=== PATIENT | female | born 1970 | race Two or more races ===

== ENCOUNTER 2020-09-19 19:57 | Emergency (ER) | payer MEDICAID ==
[2020-09-19] MEDS ORDERED: Ondansetron 4 MG/2 ML SDV IVPUSH ONE (20:27)
[2020-09-19] MEDS ORDERED: HYDROmorphone 1 MG/ML Syringe IVPUSH STA (20:27)
[2020-09-19] MEDS ORDERED: Sodium Chloride 0.9% 1,000 ML IV SCH (20:30)
--- NOTE | 2020-09-19 20:34 | EDM.PDOC ---
ED HPI GENERAL MEDICAL PROBLEM - General Chief Complaint: Chest Pain Stated Complaint: CHEST PAIN Time Seen by Provider: 09/19/20 20:11 Source of Information: Reports: Patient, Family () History Limitations: Reports: No Limitations - History of Present Illness INITIAL COMMENTS - FREE TEXT/NARRATIVE: Mrs. Miranda is a very pleasant 50-year-old woman who now presents the ED stating that she developed upper abdominal/epigastric pain, a tightness sensation, last night, while lying in bed watching television. She states that initially it was just a discomfort, but that it has progressively gotten worse, and is now a genuine pain. Around 15:00 this afternoon, the pain started radiating up into her lower retrosternal area, and around the left side of her upper abdomen to her mid-back. She states that she feels better if her knees are drawn up, worse if she is stretched out. She reports that she has had some nausea, but no vomiting. She feels a bit diaphoretic. No recent dyspnea. The patient states that she took some [place] and TUMS, without improvement in her symptoms. She last ate a small amount of soup around 15:00 this afternoon. The patient states that she had similar abdominal pain, without the chest component, about 1 year ago, however, it resolved after about 3 hours, and she did not seek medical attention at that time. Here in the ED, the patient's initial BP is found to be elevated at 188/80, with slight bradycardia 58 bpm. She is afebrile, saturating 99% on room air. She appears to be somewhat uncomfortable, but in no acute distress. Prior to last night, the patient denies having a recent fever, chills, sore throat, ear pain, nasal or sinus congestion, cough, dyspnea, chest pain, palpitations, nausea, vomiting, constipation, diarrhea, abdominal pain, urinary symptoms, recent weight gain or weight loss, recent bloody bowel movements or black bowel movements, recent joint aches, headaches, or rashes. The patient and her are visiting this area from [place]. 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) - Infectious Disease History Infectious Disease History: Reports: Chicken Pox, Novel Coronavirus - Past Surgical History HEENT Surgical History: Reports: Oral Surgery (dental extractions) Female Surgical History: Reports: Other (See Below) (Salpingectomy for ect opic ) Social & Family History - Tobacco Use Tobacco Use Status *Q: Current Every Day Tobacco User Years of Tobacco use: 34 Packs/Tins Daily: 1 Tobacco Use Comment: Started smoking at 16 yrs old - Caffeine Use Caffeine Use: Reports: Soda - Alcohol Use Alcohol Use History: Yes Alcohol Use Frequency: Socially (to excess once a week) - Recreational Drug Use Recreational Drug Use: No - Living Situation & Occupation Living situation: Reports: , with Spouse 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 ED EXAM, GI/ABD - Physical Exam Exam: See Below Exam Limited By: No Limitations General Appearance: Alert, WD/WN, Mild Distress (appears uncomfortable) Eyes: Bilateral: Normal Appearance, EOMI Ears: Normal External Exam, Hearing Grossly Normal Nose: Normal Inspection Throat/Mouth: Normal Inspection, Normal Lips, Normal Voice, No Airway Compromise Head: Atraumatic, Normocephalic Neck: Normal Inspection, Full Range of Motion Respiratory/Chest: No Respiratory Distress, Lungs Clear, Normal Breath Sounds, No Accessory Muscle Use, Chest Non-Tender (including the sternum) Cardiovascular: Normal Peripheral Pulses, Regular Rate, Rhythm, No Edema, No Gallop, No JVD, No Murmur, No Rub GI/Abdominal Exam: Normal Bowel Sounds, Soft, No Organomegaly, No Distention, No Abnormal Bruit, No Mass, Tender (Reproducible, to palpation of the epigastric area. Nontender elsewhere.) Back Exam: Normal Inspection, Full Range of Motion, NT Extremities: Normal Inspection, Normal Range of Motion, No Pedal Edema, Normal Capillary Refill Neurological: Alert, Oriented, Normal Cognition, No Motor/Sensory Deficits Psychiatric: Normal Affect Skin Exam: Warm, Dry, Intact, Normal Color, No Rash #1 Interpretation EKG Date: 09/19/20 Time: 20:05 Rhythm: NSR Rate (Beats/Min): 60 [place]: Normal P-Wave: Present QRS: Other (Late transition) ST-T: Normal QT: Normal Comparison: NA - No Prior EKG Course - Vital Signs Last Recorded V/S: Last Vital Signs Temp 36.3 C 09/19/20 20:05 Pulse 59 L 09/19/20 20:05 Resp 20 09/19/20 20:05 BP 188/80 H 09/19/20 20:05 Pulse Ox 99 09/19/20 20:05 - Orders/Labs/Meds Orders: Active Orders 24 hr Category Date Time Status EKG Documentation Completion [RC] STAT Care 09/19/20 20:33 Active Abdomen Pelvis w Cont [CT] Stat Exams 09/19/20 20:27 Taken Chest 2V [CR] Stat Exams 09/19/20 20:32 Taken Famotidine [Pepcid] Med 09/19/20 22:55 Stat 40 mg PO ONETIME STA Sodium Chloride 0.9% [Normal Saline] 1,000 ml Med 09/19/20 20:30 Active IV ASDIRECTED Medication Orders Famotidine (Famotidine 20 Mg Tab) 40 mg PO ONETIME STA Stop: 09/19/20 22:56 Sodium Chloride (Normal Saline) 1,000 mls @ 150 mls/hr IV ASDIRECTED KRISHNA Last Admin: 09/19/20 20:36 Dose: 150 mls/hr Documented by: HO Labs: Laboratory Tests 09/19/20 09/19/20 09/19/20 Range/Units 20:10 20:10 21:07 WBC 7.96 (3.98-10.04) K/mm3 RBC 4.57 (3.98-5.22) M/mm3 Hgb 14.5 (11.2-15.7) gm/dl Hct 43.8 (34.1-44.9) % MCV 95.8 H (79.4-94.8) fl MCH 31.7 (25.6-32.2) pg MCHC 33.1 (32.2-35.5) g/dl RDW Std Deviation 45.8 (36.4-46.3) fL Plt Count 308 (182-369) K/mm3 MPV 10.4 (9.4-12.3) fl Neutrophils % (Manual) 73 H (40-60) % Band Neutrophils % 0 (0-10) % Lymphocytes % (Manual) 23 (20-40) % Atypical Lymphs % 0 % Monocytes % (Manual) 3 (2-10) % Eosinophils % (Manual) 0 L (0.7-5.8) % Basophils % (Manual) 1 (0.1-1.2) Platelet Estimate Adequate RBC Morph Comment Normal Sodium 139 (136-145) mEq/L Potassium 3.6 (3.5-5.1) mEq/L Chloride 102 (98-107) mEq/L Carbon Dioxide 26 (21-32) mEq/L Anion Gap 14.6 (5-15) BUN 9 (7-18) mg/dL Creatinine 0.7 (0.55-1.02) mg/dL Est Cr Clr Drug Dosing 70.94 mL/min Estimated GFR (MDRD) > 60 (>60) mL/min BUN/Creatinine Ratio 12.9 L (14-18) Glucose 113 H (70-99) mg/dL Calcium 9.2 (8.5-10.1) mg/dL Magnesium 2.1 (1.8-2.4) mg/dL Total Bilirubin 0.5 (0.2-1.0) mg/dL AST 60 H (15-37) U/L ALT 106 H (14-59) U/L Alkaline Phosphatase 118 H (46-116) U/L Total Protein 8.5 H (6.4-8.2) g/dl Albumin 3.8 (3.4-5.0) g/dl Globulin 4.7 gm/dL Albumin/Globulin Ratio 0.8 L (1-2) Lipase 105 (73-393) U/L SARS-CoV-2 RNA (EDUAR) Negative (NEGATIVE) Meds: Medications Generic Name Dose Route Start Last Admin Trade Name Freq PRN Reason Stop Dose Admin Famotidine 40 mg 09/19/20 22:55 Famotidine 20 Mg Tab PO 09/19/20 22:56 ONETIME STA Sodium Chloride 1,000 mls @ 150 mls/hr 09/19/20 20:30 09/19/20 20:36 Normal Saline IV 150 mls/hr ASDIRECTED KRISHNA Administration Discontinued Medications Generic Name Dose Route Start Last Admin Trade Name Freq PRN Reason Stop Dose Admin Hydromorphone HCl 0.5 mg 09/19/20 20:27 09/19/20 20:37 Hydromorphone 1 Mg/Ml Syringe IVPUSH 09/19/20 20:28 0.5 mg ONETIME STA Administration Hydromorphone HCl 0.5 mg 09/19/20 22:13 09/19/20 22:18 Hydromorphone 0.5 Mg/0.5 Ml Syringe IVPUSH 09/19/20 22:14 0.5 mg ONETIME ONE Administration Ondansetron HCl 4 mg 09/19/20 20:27 09/19/20 20:37 Ondansetron 4 Mg/2 Ml Sdv IVPUSH 09/19/20 20:28 4 mg ONETIME ONE Administration - Re-Assessments/Exams Free Text/Narrative Re-Assessment/Exam: 09/19/20 20:29 As above, the patient developed upper abdominal pain last night, while lying down. The pain progressively got worse today, then radiated up into her lower chest around 15:00 this afternoon. She states that the pain radiates around the left side to the middle of her back. She has had nausea, but no vomiting. She also reports some diaphoresis. No dyspnea. An ECG, obtained at triage, appears to be normal. On examination, she has reproducible tenderness to her upper abdomen, with no tenderness elsewhere. No back tenderness or CVA tenderness. Her presentation is concerning for pancreatitis. I have ordered a work-up that includes several blood tests, a swab for the SARS-CoV-2 virus (in case she needs to be admitted), a chest x-ray, and a CT of the abdomen and pelvis with oral and IV contrast. In the meantime, the patient will be given some IV Dilaudid, IV Zofran, and IV fluid. 09/19/20 21:12 Two-view chest radiograph appears to be grossly normal. The cardiac silhouette is within normal limits. No pulmonary vascular congestion. No pleural effusions. No focal infiltrate. No pneumothorax. Formal read per the Radiologist pending. The patient's CBC is unremarkable. Her CMP is remarkable for slight hyperglycemia of 113, an AST/ALT elevated at 160/106, and an alkaline phosphatase mildly elevated at 118, with the remainder of her CMP being unremarkable. Her magnesium level is within normal limits at 2.1. Her lipase level is within normal limits at 105. 09/19/20 22:28 The patient's swab for the SARS-CoV-2 virus has returned negative. 09/19/20 22:49 CT of the abdomen and pelvis with oral and IV contrast is read by Rajiv as: 1. Cholelithiasis without cholecystitis. 2. Diverticulosis without diverticulitis. 09/19/20 22:56 Test results discussed with the patient and her . As above, today's work-up is grossly unremarkable, and does not explain the cause of her symptoms. Overall, I suspect that she is suffering from GERD, and for that reason, I will start her on famotidine, which she can continue as an outpatient. I will prescribe her a small quantity of tramadol that she can take if her pain continues, as well as refer her to the clinic for follow-up. Departure - Departure Time of Disposition: 22:57 Disposition: Home, Self-Care 01 Condition: Good Clinical Impression: GERD (gastroesophageal reflux disease) - Discharge Information *PRESCRIPTION DRUG MONITORING PROGRAM REVIEWED*: Not Applicable *COPY OF PRESCRIPTION DRUG MONITORING REPORT IN PATIENT ÁNGEL: Not Applicable Prescriptions: traMADol [Ultram] 1 tab PO Q6H PRN #6 tablet PRN Reason: Pain (Severe 7-10) Referrals: PCP,Not In Area [Primary Care Provider] - Marianela Carrera, GROC[employer]ER [Nurse Practitioner] - Forms: ED Department Discharge Additional Instructions: You were seen in the emergency room after developing upper abdominal pain last night, which radiated up into your chest and around the left side of your body to your back this afternoon. Work-up in the ER included several blood tests, a swab for the SARS-CoV-2 virus, a chest x-ray, a CT of your abdomen and pelvis with oral and IV contrast, and an ECG. Your entire work-up was unremarkable, and does not explain the cause of your p ain. Based on your history, physical exam, and ER tests, the cause of your pain is felt most likely to be due to GERD = acid reflux. You have been started on the antacid famotidine (Pepcid). Famotidine is available [id number], and generic famotidine is just as good as brand-name Pepcid. We recommend that you take 1 tablet of famotidine twice a day. You have also been prescribed the opioid pain reliever tramadol. You may take 1 tablet of tramadol up to every 6 hours, as needed for pain. Do not drive or operate heavy machinery for 12 hours after taking tramadol. Tramadol may cause constipation, so consider taking a stool softener. If your pain persists despite taking famotidine, we recommend that you follow-up with Marianela Carrera NP, or one of the other providers in the clinic, for further evaluation. If any other problems, please do not hesitate to return to the ER. Sepsis Event Note (ED) - Evaluation Sepsis Screening Result: No Definite Risk - Focused Exam Vital Signs: Vital Signs Temp Pulse Resp BP Pulse Ox 09/19/20 20:05 36.3 C 59 L 20 188/80 H 99 - My Orders Last 24 Hours: My Active Orders 09/19/20 20:27 Abdomen Pelvis w Cont [CT] Stat 09/19/20 20:30 Sodium Chloride 0.9% [Normal Saline] 1,000 ml IV ASDIRECTED 09/19/20 20:32 Chest 2V [CR] Stat 09/19/20 20:33 EKG Documentation Completion [RC] STAT 09/19/20 22:55 Famotidine [Pepcid] 40 mg PO ONETIME STA - Assessment/Plan Last 24 Hours: My Active Orders 09/19/20 20:27 Abdomen Pelvis w Cont [CT] Stat 09/19/20 20:30 Sodium Chloride 0.9% [Normal Saline] 1,000 ml IV ASDIRECTED 09/19/20 20:32 Chest 2V [CR] Stat 09/19/20 20:33 EKG Documentation Completion [RC] STAT 09/19/20 22:55 Famotidine [Pepcid] 40 mg PO ONETIME STA
[2020-09-19] MEDS ORDERED: HYDROmorphone 0.5 MG/0.5 ML Syringe IVPUSH ONE (22:13)
[2020-09-19] MEDS ORDERED: Famotidine 20 MG Tab PO STA (22:55)
--- NOTE | 2020-09-20 07:31 | CT ---
CT abdomen and pelvis Technique: Multiple axial sections were obtained from above the dome of the diaphragm inferiorly to the pubic symphysis. Intravenous contrast and oral contrast was given. Delayed images were also obtained to the abdomen and pelvis. Reconstructed coronal and sagittal images were obtained. Comparison: No prior abdominal imaging is available. Findings: Visualized lung bases show mild atelectasis. Liver contains no focal abnormality. Single large gallstone is noted within the gallbladder measuring about 2.8 cm. Spleen size is normal. Small hiatal hernia is noted with gastroesophageal reflux of contrast. Adrenal glands show no nodule. Pancreas shows no discrete abnormality. Kidneys show symmetric contrast enhancement without hydronephrosis or mass. Abdominal aorta shows atherosclerotic change without aneurysm. No retroperitoneal adenopathy or mesenteric abnormalities are seen. No pelvic mass or adenopathy is noted. Minimal diverticulosis is seen within the sigmoid colon. No findings of diverticulitis are seen. Appendix is believed to be present and appears normal in size. No bowel abnormality is appreciated on this exam. Delayed images show contrast excretion from both kidneys into nondilated ureters as well as within the bladder. Bone window settings were reviewed which show no acute osseous abnormality. Minimal degenerative changes are seen within the spine. Impression: 1. Large gallstone. 2. Minimal diverticulosis without diverticulitis. 3. Nothing acute is appreciated on CT study of the abdomen and pelvis. Diagnostic code #2 I agree with preliminary report from [facility], finalized on 09/19/20, 11:40 PM CDT, code 1
--- NOTE | 2020-09-20 07:33 | CR ---
Chest: 2 views of the chest were obtained. Comparison: No prior chest imaging is available. Heart size and mediastinum are within normal limits. Lungs show no acute parenchymal change. Bony structures show nothing acute. Impression: 1. Nothing acute is seen on 2 view chest x-ray. Diagnostic code #1
== END 2020-09-19 23:20 | disposition home or self-care (01) ==
LOC: JD.ED 19:57
DX: K21.9 Gastro-esophageal reflux disease without esophagitis (principal); Z88.0 Allergy status to penicillin; Z86.16 Personal history of COVID-19; Z72.0 Tobacco use; Z20.822 Contact with and (suspected) exposure to COVID-19
CPT/HCPCS: 36415; 71046; 74177; 80053; 83690; 83735; 85007; 85027; 87635; 93005; 96374; 96375; 96376; 99284; A9270; J1170; J2405; J7030; 93010; U0002

== ENCOUNTER 2020-09-28 06:14 | Day surgery (SDC) | payer MEDICAID ==
[~2020-09-28 06:14] MED LIST: Lactated Ringers 1,000 ML IV SCH; Lidocaine 1%/Sod Bicarbonate in NS 8.4% 1 ML Syringe IDERM PRN; Sodium Chloride 0.9% 10 ML Syringe FLUSH PRN
[2020-09-28] MEDS ORDERED: Clindamycin Phosphate in D5W 900 MG in Premix Bag 1 BAG IV ONE ×2 (06:30)
[2020-09-28] MEDS ORDERED: Bupivacaine 0.5%/EPINEPHrine 1:200,000 50 ML MDV ONE (06:42)
--- NOTE | 2020-09-28 06:42 | PCM.PREANE ---
Preanesthetic Assessment - Procedure Proposed Procedure: Laparoscopic cholecystectomy - Anesthesia/Transfusion/Family Hx Anesthesia History: Prior Anesthesia Without Reaction Family History of Anesthesia Reaction: No Transfusion History: Prior Transfusion Without Reaction Intubation History: Unknown - Review of Systems General: No Symptoms Pulmonary: No Symptoms Cardiovascular: No Symptoms Gastrointestinal: Abdominal Pain (Right upper abdomen) Neurological: No Symptoms Other: Reports: None - Physical Assessment NPO Status Date: 09/27/20 NPO Status Time: 18:10 Vital Signs: BP 106/77 HR 68 98% 16 97.6 Height: 1.55 m Mental Status: Alert & Oriented x3 Airway Class: Mallampati = 1 Dentition: Reports: Normal Dentition Thyro-Mental Finger Breadths: 2 Mouth Opening Finger Breadths: 3 ROM/Head Extension: Full Lungs: Clear to Auscultation, Normal Respiratory Effort Cardiovascular: Regular Rate, Regular Rhythm - Lab Values: Labs reviewed and okay to proceed - Imaging/EKG Impressions: EKG NSR 60 - Allergies Allergies/Adverse Reactions: Allergies Allergy/AdvReac Type Severity Reaction Status Date / Time Penicillins Allergy Severe Other Verified 09/27/20 08:53 - Blood Blood Available: No Product(s) Available: None - Anesthesia Plan Pre-Op Medication Ordered: None - Acknowledgements Anesthesia Type Planned: General Anesthesia Pt an Appropriate Candidate for the Planned Anesthesia: Yes Alternatives and Risks of Anesthesia Discussed w Pt/Guardian: Yes Pt/Guardian Understands and Agrees with Anesthesia Plan: Yes PreAnesthesia Questionnaire HEENT History: Reports: None Cardiovascular History: Reports: None Respiratory History: Reports: COPD, SOB Gastrointestinal History: Reports: Diverticulosis Genitourinary History: Reports: None 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 Musculoskeletal History: Reports: None Neurological History: Reports: None Psychiatric History: Reports: None Endocrine/Metabolic History: Reports: None Hematologic History: Reports: Anemia, Blood Transfusion(s) Immunologic History: Reports: None Oncologic (Cancer) History: Reports: None Dermatologic History: Reports: None - Infectious Disease History Infectious Disease History: Reports: None - Past Surgical History Head Surgeries/Procedures: Reports: None HEENT Surgical History: Reports: Oral Surgery Cardiovascular Surgical History: Reports: None Respiratory Surgical History: Reports: None GI Surgical History: Reports: None Female Surgical History: Reports: Other (See Below) Endocrine Surgical History: Reports: None Neurological Surgical History: Reports: None Musculoskeletal Surgical History: Reports: None Oncologic Surgical History: Reports: None Dermatological Surgical History: Reports: None - SUBSTANCE USE Tobacco Use Status *Q: Current Every Day Tobacco User Tobacco Use Within Last Twelve Months: Cigarettes Days Per Week of Alcohol Use: 2 Number of Drinks Per Day: 8 Total Drinks Per Week: 16 Recreational Drug Use History: No - HOME MEDS Home Medications: Home Meds traMADol [Ultram] 50 mg PO Q6H PRN 09/27/20 [History] - CURRENT (IN HOUSE) MEDS Current Meds: Current Medications Lactated Ringer's (Ringers, Lactated) 1,000 mls @ 125 mls/hr IV ASDIRECTED KRISHNA Stop: 09/28/20 23:00 Clindamycin Phosphate 900 mg/ (Premix) 50 mls @ 100 mls/hr IV ONETIME ONE Stop: 09/28/20 06:59 Lidocaine/Sodium Bicarbonate (Lidocaine 1%/Sod Bicarbonate In Ns 8.4% 1 Ml Syringe) 0.25 ml IDERM ONETIME PRN PRN Reason: Prior to IV Start Stop: 09/28/20 18:00 Sodium Chloride (Sodium Chloride 0.9% 10 Ml Syringe) 10 ml FLUSH ASDIRECTED PRN PRN Reason: Keep Vein Open Stop: 09/28/20 18:00
[2020-09-28] MEDS ORDERED: Rocuronium 50 MG/5 ML Vial ONE (06:51)
[2020-09-28] MEDS ORDERED: fentaNYL 250 MCG/5 ML SDV ONE (06:51)
[2020-09-28] MEDS ORDERED: Ondansetron 4 MG/2 ML SDV ONE (06:51)
[2020-09-28] MEDS ORDERED: Dexamethasone 4 MG/ML 5 ML MDV ONE (06:51)
[2020-09-28] MEDS ORDERED: Lactated Ringers 1,000 ML ONE ×2 (06:51→09:25)
[2020-09-28] MEDS ORDERED: Lidocaine 1% 4 ML ONE (06:51)
[2020-09-28] MEDS ORDERED: Propofol 200 MG/20 ML SDV ONE ×4 (06:51→09:37)
[2020-09-28] MEDS ORDERED: Midazolam 1 MG/ML 2 ML SDV ONE (06:51)
--- NOTE | 2020-09-28 07:28 | PCM.PRNOTE ---
- Free Text/Narrative Note: Date: 09/28/2020 Operation: laparoscopic cholecystectomy Indication: symptomatic cholelithiasis Surgeon: Anand Allred MD Findings: severe calculous cholecystitis. Friable gallbladder with rupture on handling, with spillage of white bile. Critical view of safety obtained. Detailed Report: The patient was taken to the operating room and placed in supine position. Time out was performed and general endotracheal anesthesia was initiated. The abdomen was prepped and draped in usual sterile fashion. A Veress needle was placed at the left upper quadrant in order to establish pneumoperitoneum. Once established, air was aspirated with a needle and syringe just inferior to the umbilicus. A bladed 5 mm trocar was introduced at this site. A 5 mm 30 degree laparoscope was inserted into the abdomen and contents were inspected. There was no injury from Veress needle placement, and the needle was removed under laparoscopic visualization. Additional ports were placed under laparoscopic visualization. 2 additional 5 mm ports were placed in the right upper quadrant, and a 12 mm bladed trocar was placed at the subxiphoid area. The patient was positioned in reverse Trendelenburg and rotated towards the surgeon standing on the patient's left side. Omentum was very adherent to the gallbladder, which was enlarged, thickened and inflamed. Omental adhesions were dissected away bluntly. In order to grasp the gallbladder, needle decompression was performed with aspiration of about 30 cc of clear/white bile. The fundus of the gallbladder was grasped and retracted cephalad. On grasping the mid portion of the gallbladder, there was perforation due to friability of the tissue and spillage of white bile with sludgy contents occurred. Dissection commenced, and visceral peritoneum was dissected at the area of the infundibulum of the gallbladder. Cystic structures were carefully skeletonized. The cystic duct and cystic artery were delineated. A critical view of safety was obtained. The cystic duct had to be clipped using extra large gold hemolock clips. The duct and artery were clipped with hemolock clips and transected with laparoscopic luda. The gallbladder was from the liver using hook monopolar energy. The gallbladder basically peeled off the liver, leaving a raw, oozing liver edge. The specimen was placed in an Endo Catch bag and removed through the subxiphoid port site. This site had to be enlarged substantially in order to extract the specimen. The dissection bed was copiously irrigated and suctioned. A fair amount of clotted blood was removed. The bed was temporarily packed with a sponge. After removal, the field looked hemostatic. A large piece of surgicel was placed in the bed and this was then covered with Floseal hemostatic matrix. The 12 mm port was removed, and the incision was closed at the level of fascia using 0 Vicryl in a laparoscopic sutu re passer. The right upper quadrant ports were removed under visualization and hemostasis was satisfactory. The scope was removed and pneumoperitoneum was released. All incisions were closed at the level of skin with 4-0 Vicryl and dressed with Dermabond. A total of 30 cc 0.5% Marcaine with epinephrine was used for local anesthetic throughout the case. The patient tolerated the procedure well.
[2020-09-28] MEDS ORDERED: Albuterol 0.083% 2.5 MG/3 ML Neb Soln NEB ONE (08:00)
[2020-09-28] MEDS ORDERED: Ketorolac 15 MG/ML SDV ONE (08:11)
[2020-09-28] MEDS ORDERED: Ketamine 500 mg/10 ML MDV ONE (08:15)
[2020-09-28] MEDS ORDERED: HYDROmorphone 1 MG/ML Syringe ONE (08:19)
[2020-09-28] MEDS ORDERED: Albuterol 6.7 GM Inhaler INH ONE (08:51)
[2020-09-28] MEDS ORDERED: HYDROmorphone 0.5 MG/0.5 ML Syringe IVPUSH PRN (09:54)
[2020-09-28] MEDS ORDERED: Ondansetron 4 MG/2 ML SDV IVPUSH PRN (09:54)
--- NOTE | 2020-09-28 10:10 | PCM.POSTAN ---
POST ANESTHESIA ASSESSMENT - MENTAL STATUS Mental Status: Alert, Oriented - VITAL SIGNS Vital Signs: Last Vital Signs Temp 97.6 F 09/28/20 06:15 Pulse 68 09/28/20 06:15 Resp 16 09/28/20 06:15 BP 106/77 09/28/20 06:15 Pulse Ox 100 09/28/20 07:26 BP 175/95 HR 81 16 100 sat 98.3 HTN noted, discussed with COTTON CLASSER to try ordered pain medication to see if that decreases BP. Will continue to monitor. - RESPIRATORY Respiratory Status: Respiratory Rate WNL, Airway Patent, O2 Saturation Stable, Supplemental Oxygen - CARDIOVASCULAR CV Status: Pulse Rate WNL, Blood Pressure Stable - GASTROINTESTINAL GI Status: No Symptoms - PAIN Pain Score: 5 - POST OP HYDRATION Hydration Status: Adequate & Stable
[2020-09-28] MEDS: fentaNYL 100 MCG/2 ML SDV IVPUSH PRN ×2 (10:12→10:20)
[2020-09-28] MEDS ORDERED: hydrALAZINE 20 MG/ML SDV IVPUSH PRN (10:38)
--- NOTE | 2020-09-28 11:24 | PCM48HPAN ---
Post Anesthesia Note - EVALUATION WITHIN 48HRS OF ANESTHETIC Vital Signs in Normal Range: Yes Patient Participated in Evaluation: Yes Respiratory Function Stable: Yes Airway Patent: Yes Cardiovascular Function Stable: Yes (HTN improved following one dose of 2 mg of hydralazine) Hydration Status Stable: Yes Pain Control Satisfactory: Yes Nausea and Vomiting Control Satisfactory: Yes Mental Status Recovered: Yes Vital Signs: Last Vital Signs Temp 98.4 F 09/28/20 11:15 Pulse 63 09/28/20 11:15 Resp 13 09/28/20 11:15 BP 145/91 H 09/28/20 11:15 Pulse Ox 98 09/28/20 11:15 - COMMENTS/OBSERVATIONS Free Text/Narrative:: Discussed and encouraged with patient to follow up with primary care provider regarding management of hypertension. Patient and stated that they will be checking BP at home with home BP machine and will follow up with primary care provider.
== END 2020-09-28 11:58 | disposition home or self-care (01) ==
LOC: JD.SDS 06:14
PROVIDERS: ATTEND Surgery
DX: K80.10 Calculus of gallbladder with chronic cholecystitis without obstruction (principal); F17.210 Nicotine dependence, cigarettes, uncomplicated; Z88.0 Allergy status to penicillin; Z79.899 Other long term (current) drug therapy
CPT/HCPCS: 00790; 94640; A9270-GY; J0360; J1100; J1170; J1885; J2250; J2405; J2704; J2710; J3010; J3490; J7120